=== PATIENT | male | born 1955 | race Caucasian/White ===

== ENCOUNTER 2024-01-18 17:10 | Emergency (ER) | payer OTHER ==
[2024-01-18] MEDS ORDERED: LIDOCAINE VISCOUS 2% 10ML ORAL SOLN ONE (17:54)
[2024-01-18] MEDS ORDERED: MAGNES/ALUMIN/SIMET 30ML UCUP ONE (17:54)
[2024-01-18 18:28] LABS: Absolute Eosinophils 0.1 K/uL (0-0.5); Absolute Lymphocytes (CBC) 2.4 K/uL (0.7-4.9); Absolute Monocytes 0.8 K/uL (0.1-1.3); Absolute Neutrophil 7.3 K/uL (1.8-8.0); Basophils % 0.3 % (0-1.3); Eosinophils % 0.6 % (0-4.4); MCHC 33.4 g/dL (32.0-36.0); MCV 83.8 fL (80-100); MPV 7.5 fL (7.6-11.3); Monocytes % 7.2 % (3.3-12.3); Neutrophils % 68.9 % (41.7-73.7); Platelets 252 thou/uL (152-406); RBC Red Blood Cell Count 5.01 M/uL (4.33-5.43); Red Cell Distribution Width 14.1 % (12.1-15.2)
--- NOTE | 2024-01-18 18:37 | RAD REPORT ---
EXAMINATION: ONE VIEW CHEST XR CLINICAL INDICATION: Male, 68 years old. [facility] MAIN CHEST PAIN Bed Name: 2 TECHNIQUE: Frontal chest projection is submitted. Examination is limited by patient positioning and t echnique. COMPARISON: 02/27/2020 FINDINGS: The lungs are well inflated and clear. No pneumothorax or sizable effusion. The heart is normal in s ize. IMPRESSION: No acute intrathoracic abnormalities.
[2024-01-18 18:46] LABS: ALT/SGPT 28 U/L (16-61); AST/SGOT 20 U/L (15-37); Albumin 3.9 g/dL (3.4-5.0); Albumin/Globulin Ratio 1.2 (1.1-1.8); Alkaline Phosphatase 67 U/L (45-117); Anion Gap 14.7 mEq/L (5.0-15.0); BUN Blood Urea Nitrogen 48 mg/dL (7-18); Bicarbonate 21 mEq/L (21-32); Bilirubin Total 0.4 mg/dL (0.2-1.0); Globulin 3.2 g/dL (2.3-3.5); Glomerular Filtration Rate 35 ml/min (=/>90); Glucose Level 148 mg/dL (74-106); Lipase 64 U/L (13-75); Magnesium 2.2 mg/dL (1.6-2.4); NT PRO-BNP 11 pg/mL (<125); Potassium 3.7 mEq/L (3.5-5.1); Protein, Total 7.1 g/dL (6.4-8.2); Sodium Level 131 mEq/L (136-145); Troponin High Sensitivity 4.1 pg/mL (<58.9)
[2024-01-18 18:48] LABS: Bilirubin Direct < 0.2 mg/dL (0-0.2); Bilirubin Indirect, Calculated 0.2 mg/dL (0.2-0.8)
[2024-01-18 18:52] LABS: Protime INR 0.98
[2024-01-18] MEDS ORDERED: NA CHLORIDE 0.9% 1,000 ML ONE (19:01)
--- NOTE | 2024-01-18 20:00 | RAD REPORT ---
EXAM: CT CHEST, ABDOMEN AND PELVIS WITHOUT CONTRAST CLINICAL INDICATION: Male, 68 years old. [facility] MAIN abd pain;Chest pain Bed Name: 7 TECHNIQUE: CT chest, abdomen and pelvis was performed, without IV contrast, as per department protoco l. Axial, sagittal and coronal reconstructions were obtained. One or more of the following dose reduction techniques were used: Automated exposure control, adjustment of the mA and/or kV according to the patient size, and/or iterative reconstruction. Unless otherwise specified, incidental findings do not require dedicated imaging follow-up. COMPARISON: Chest radiograph of earlier the same day. Pelvis CT 05/13/2022 FINDINGS: The lack of intravenous contrast limits the sensitivity of this exam for evaluation of solid visceral organs, vascular structures, and retroperitoneum. Chest: LOWER NECK/CHEST WALL: Visualized thyroid gland and soft tissues are normal. LUNGS AND AIRWAYS: Airways are clear. No evidence of airspace or interstitial process. No nodules. PLEURA: No pleural effusion. No pneumothorax. Hemidiaphragms are normally positioned. MEDIASTINUM AND LYMPH NODES: No mediastinal mass or fluid collection. Normal size mediastinal, hilar, and axillary lymph nodes. THORACIC AORTA: Normal caliber and configuration. PULMONARY ARTERIES: Normal caliber. HEART: Unremarkable. Abdomen/Pelvis LIVER: Normal in size and contour. No focal lesion. GALLBLADDER/BILE DUCTS: Gallbladder is collapsed limiting evaluation. PANCREAS: No mass, ductal dilation, or orestes-pancreatic fluid. SPLEEN: Normal size. No focal lesion. ADRENALS: Normal; no mass. KIDNEYS AND URETERS: Normal size and contour. No hydronephrosis. Exophytic posterior left interpolar 2.5 cm cyst appears stable. GASTROINTESTINAL TRACT: Stomach is non-dilated. Small bowel has normal course and caliber. No colonic wall thickening or pericolonic inflammatory changes. Postsurgical changes of meniscectomy. Mild distal colonic diverticulosis. PERITONEUM: No free fluid. LYMPH NODES: No lymphadenopathy. ABDOMINAL AORTA AND OTHER VESSELS: Normal caliber aorta and IVC. URINARY BLADDER: Normal contour. REPRODUCTIVE ORGANS: No pathologic process. MUSCULOSKELETAL: No acute or suspicious osseous abnormality. ADDITIONAL FINDINGS: None IMPRESSION: No acute or significant abnormalities in the chest, abdomen, or pelvis.
--- NOTE | 2024-01-18 20:08 | ER ---
Nurse's Notes [facility] Name: Armando Lozada Age: 68 yrs Sex: Male : 1955 Arrival Date: 01/18/2024 Time: 17:10 Bed 7 Private MD: Diagnosis: Gastro-esophageal reflux disease without esophagitis Presentation: 01/17 17:28 Chief complaint: Patient states: Epigastric pain and indigestion onset yesterday cm10 evening. Coronavirus screen: Client denies travel out of the [place] in the last 14 days. At this time, the client does not indicate any symptoms associated with coronavirus-19. Ebola Screen: Patient denies travel to an Ebola-affected area in the 21 days before illness onset. No symptoms or risks identified at this time. Initial Sepsis Screen: Does the patient meet any 2 criteria? No. Patient's initial sepsis screen is negative. Does the patient have a suspected source of infection? No. Patient's initial sepsis screen is negative. Risk Assessment: Do you want to hurt yourself or someone else? Patient reports no desire to harm self or others. Onset of symptoms was January 18, 2024. 17:28 Method Of Arrival: Ambulatory cm10 17:28 Acuity: RONEN 3 cm10 Triage Assessment: 17:30 General: Appears in no apparent distress. comfortable, Behavior is calm, cooperative. cm10 Neuro: No deficits noted. Level of Consciousness is awake, alert, obeys commands, Oriented to person, place, time, situation, Appropriate for age. Respiratory: No deficits noted. Airway is patent Respiratory effort is even, unlabored, Respiratory pattern is regular, symmetrical. Historical: - Allergies: 17:29 No Known Allergies; cm10 - PMHx: 17:29 GERD; Hypercholesterolemia; Colon Cancer; cm10 - PSHx: 17:29 Colectomy; Prostate Removed; Skin grafting; cm10 - Immunization history:: Adult Immunizations up to date. - Infectious Disease History:: Denies. - Social history:: Smoking status: Patient denies any tobacco usage or history of. Screenin:13 [facility] ED Fall Risk Assessment (Adult) History of falling in the last 3 months, ph including since admission No falls in past 3 months (0 pts) Confusion or Disorientation No (0 pts) Intoxicated or Sedated No (0 pts) Impaired Gait No (0 pts) Mobility Assist Device Used No (0 pt) Altered Elimination No (0 pt) Score/Fall Risk Level 0 - 2 = Low Risk Oriented to surroundings, Maintained a safe environment, Hourly rounding (assess needs \T\ fall precautionary measures) done. Abuse screen: Denies threats or abuse. Denies injuries from another. Nutritional screening: No deficits noted. Tuberculosis screening: No symptoms or risk factors identified. Assessment: 18:12 General: Appears in no apparent distress. comfortable, well groomed, Behavior is calm, ph cooperative, appropriate for age. Pain: Complains of pain in xiphoid area and mid-sternal area. Neuro: Level of Consciousness is awake, alert, obeys commands, Oriented to person, place, time, situation. Cardiovascular: Capillary refill < 3 seconds in bilateral fingers Patient's skin is warm and dry. Cardiovascular: Reports chest pain, fatigue, shortness of breath. Respiratory: Airway is patent Respiratory effort is even, unlabored, Respiratory pattern is regular, symmetrical. GI: Bowel sounds present X 4 quads. Abd is soft X 4 quads Reports epigastric pain. Derm: Skin is pink, warm \T\ dry. 19:52 General: Appears in no apparent distress. comfortable, Behavior is calm, cooperative. al5 Pain: Complains of pain in mid-sternal area Pain currently is 1 out of 10 on a pain scale. Neuro: Level of Consciousness is awake, alert, obeys commands, Oriented to person, place, time, situation. Cardiovascular: Capillary refill < 3 seconds Patient's skin is warm and dry. Respiratory: Airway is patent Respiratory effort is even, unlabored, Respiratory pattern is regular, symmetrical. GI: Abdomen is round non-distended. : No signs and/or symptoms were reported regarding the genitourinary system. EENT: No signs and/or symptoms were reported regarding the EENT system. Derm: Skin is intact, Skin is pink, warm \T\ dry. normal. Musculoskeletal: No signs and/or symptoms reported regarding the musculoskeletal system. Vital Signs: 17:28 BP 104 / 71; Pulse 73; Resp 16; Temp 97.1; Pulse Ox 99% on R/A; Weight 86.18 kg (R); cm10 Height 6 ft. 0 in. (R); Pain 10/10; 18:14 BP 110 / 66; Pulse 73; Resp 18; Pulse Ox 96% on R/A; ph 20:18 BP 105 / 64; Pulse 71; Resp 18; Temp 98.5; Pulse Ox 98% on R/A; Pain 1/10; bm8 17:28 Body Mass Index 25.77 (86.18 kg, 182.88 cm) cm10 17:28 Pain Scale: Adult cm10 20:18 Pain Scale: Adult bm8 Dilcia Coma Score: 20:18 Eye Response: spontaneous(4). Motor Response: obeys commands(6). Verbal Response: bm8 oriented(5). Total: 15. ED Course: 17:14 Patient arrived in ED. im 17:15 Josefina Granados PA-C is PHCP. sb4 17:15 Cony Galeas MD is Attending Physician. sb4 17:29 Triage completed. cm10 17:31 Arm band placed on Patient placed in waiting room. EKG completed in triage. Results cm10 shown to MD. 17:31 EKG done, by ED staff, reviewed by Josefina Granados PA-C. cm10 17:45 Arthur Fermin, RN is Primary Nurse. bp 17:55 XRAY Chest (1 view) In Process Unspecified. EDMS 18:13 Patient has correct armband on for positive identification. Bed in low position. Call ph light in reach. Side rails up X 1. Client placed on continuous cardiac and pulse oximetry monitoring. NIBP monitoring applied. quality assurance monitor chassis on. Door closed. Noise minimized. Warm blanket given. 18:13 Initial lab(s) drawn, by me, sent to lab. Inserted saline lock: 20 gauge in right ph antecubital area, using aseptic technique. Blood collected. Flushed with 10 mL NS. 18:14 Lipase Sent. ph 18:14 CBC with Diff Sent. ph 18:14 Basic Metabolic Panel Sent. ph 18:14 LFT's Sent. ph 18:14 Magnesium Sent. ph 18:14 NT PRO-BNP Sent. ph 18:14 PT-INR Sent. ph 18:14 Troponin HS Sent. ph 19:25 Chest Abdomen Pelvis Wo Con CT In Process Unspecified. EDMS 19:33 No provider procedures requiring assistance completed. al5 20:07 Parag Solis MD is Referral Physician. sb4 20:18 Provided Education on: post er care. bm8 20:18 IV discontinued, intact, bleeding controlled, No redness/swelling at site. Pressure bm8 dressing applied. Administered Medications: 18:14 Drug: GI Cocktail without - (Maalox PO 30 ml, Lidocaine Mucous Membrane 2 % 15 ph ml) PO once Route: PO; 19:02 Follow up: Response: No adverse reaction ph 19:02 Drug: NS 0.9% IV 1000 ml IV at 1 bolus Per protocol; 1000 mL bolus Route: IV; Rate: 1 ph bolus; Site: right antecubital; 20:20 Follow up: Response: No adverse reaction; IV Status: Completed infusion; IV Intake: bm8 1000ml Medication: 18:13 VIS not applicable for this client. ph Intake: 20:20 IV: 1000ml; Total: 1000ml. bm8 Outcome: 20:07 Discharge ordered by MD. sb4 20:18 Discharged to home ambulatory, bm8 20:18 Condition: stable 20:18 Discharge instructions given to patient, Instructed on discharge instructions, follow up and referral plans. no drinking with medication, no driving heavy equipment, medication usage, safety practices, Demonstrated understanding of instructions, follow-up care, medications, Prescriptions given X 1, 20:20 Patient left the ED. bm8 Signatures: Dispatcher [employer] EDViky Reynolds RN Arthur Phan ph, RN RN Josefina Sweet PA-Ashley PA-C sb4 Litzy Turner Clarissa, RN RN cm10 Krishna Grimaldo RN RN bm8 Jessica Barnhart RN RN al5
--- NOTE | 2024-01-18 20:08 | EDPHYS ---
Physician Documentation [facility] Name: Armando Lozada Age: 68 yrs Sex: Male : 1955 Arrival Date: 01/18/2024 Time: 17:10 Bed 7 Private MD: ED Physician Cony Galeas HPI: 01/17 17:37 This 68 yrs old Male presents to ER via Ambulatory with complaints of Abdominal Pain, sb4 Chest Pain. 17:37 Patient reports epigastric abdominal pain radiating up into his chest since last night. sb4 Additionally, he endorses shortness of breath and fatigue. He denies any prior cardiac history. He states that he takes Lipitor and Prilosec daily. Denies any nausea or vomiting. Denies any prior episodes. Historical: - Allergies: 17:29 No Known Allergies; cm10 - PMHx: 17:29 GERD; Hypercholesterolemia; Colon Cancer; cm10 - PSHx: 17:29 Colectomy; Prostate Removed; Skin grafting; cm10 - Immunization history:: Adult Immunizations up to date. - Infectious Disease History:: Denies. - Social history:: Smoking status: Patient denies any tobacco usage or history of. ROS: 17:37 Constitutional: Negative for fever, chills, and weight loss, sb4 17:37 Cardiovascular: Positive for chest pain, 17:37 Abdomen/GI: Positive for abdominal pain, 17:37 All other systems are negative, Exam: 17:37 Constitutional: This is a well developed, well nourished patient who is awake, alert, sb4 and in no acute distress. Head/Face: Normocephalic, atraumatic. Eyes: Extra-ocular motions intact. Periorbital areas with no swelling, redness, or edema. ENT: Mucous membranes moist. Cardiovascular: Regular rate and rhythm with a normal S1 and S2. Respiratory: Lungs have equal breath sounds bilaterally, clear to auscultation and percussion. No rales, rhonchi or wheezes noted. No increased work of breathing, no retractions or nasal flaring. Abdomen/GI: Soft, non-tender, no distension. Skin: Warm, dry with normal turgor. Normal color with no rashes, no lesions, and no evidence of cellulitis. Vital Signs: 17:28 BP 104 / 71; Pulse 73; Resp 16; Temp 97.1; Pulse Ox 99% on R/A; Weight 86.18 kg (R); cm10 Height 6 ft. 0 in. (R); Pain 10/10; 18:14 BP 110 / 66; Pulse 73; Resp 18; Pulse Ox 96% on R/A; ph 20:18 BP 105 / 64; Pulse 71; Resp 18; Temp 98.5; Pulse Ox 98% on R/A; Pain 1/10; bm8 17:28 Body Mass Index 25.77 (86.18 kg, 182.88 cm) cm10 17:28 Pain Scale: Adult cm10 20:18 Pain Scale: Adult bm8 Dilcia Coma Score: 20:18 Eye Response: spontaneous(4). Motor Response: obeys commands(6). Verbal Response: bm8 oriented(5). Total: 15. MDM: 17:31 Patient medically screened. sb4 20:06 Data reviewed: vital signs, nurses notes, lab test result(s), radiologic studies, and sb4 as a result, I will discharge patient. Counseling: I had a detailed discussion with the patient and/or guardian regarding the historical points, exam findings, and any diagnostic results supporting the discharge/admit diagnosis, lab results, radiology results, to return to the emergency department if symptoms worsen or persist or if there are any questions or concerns that arise at home. 01/17 17:35 Order name: Basic Metabolic Panel; Complete Time: 18:52 sb4 01/17 17:35 Order name: CBC with Diff; Complete Time: 18:32 sb4 01/17 17:35 Order name: LFT's; Complete Time: 18:52 sb4 01/17 17:35 Order name: Magnesium; Complete Time: 18:52 sb4 01/17 17:35 Order name: NT PRO-BNP; Complete Time: 18:52 sb4 01/17 17:35 Order name: PT-INR; Complete Time: 18:53 sb4 01/17 17:35 Order name: Troponin HS; Complete Time: 18:52 sb4 01/17 17:35 Order name: Lipase; Complete Time: 18:52 sb4 01/17 17:35 Order name: XRAY Chest (1 view); Complete Time: 18:38 sb4 01/17 19:12 Order name: Chest Abdomen Pelvis Wo Con CT; Complete Time: 20:02 sb4 01/17 17:35 Order name: Cardiac monitoring; Complete Time: 17:46 sb4 01/17 17:35 Order name: EKG - Nurse/Tech; Complete Time: 17:45 sb4 01/17 17:35 Order name: IV Saline Lock; Complete Time: 19:03 sb4 01/17 17:35 Order name: Labs collected and sent; Complete Time: 19:03 sb4 01/17 17:35 Order name: O2 Per Protocol; Complete Time: 17:45 sb4 01/17 17:35 Order name: O2 Sat Monitoring; Complete Time: 17:45 sb4 EC:38 Rate is 79 beats/min. Rhythm is regular, Normal Sinus Rhythm. [place] interval is normal at sb4 172 msec. QRS interval is normal at 86 msec. QT interval is normal at 376 msec. No Q waves. T waves are Normal. No ST changes noted. Clinical impression: Normal ECG and No evidence of ischemia. Interpreted by me. Reviewed by me. Administered Medications: 18:14 Drug: GI Cocktail without - (Maalox PO 30 ml, Lidocaine Mucous Membrane 2 % 15 ph ml) PO once Route: PO; 19:02 Follow up: Response: No adverse reaction ph 19:02 Drug: NS 0.9% IV 1000 ml IV at 1 bolus Per protocol; 1000 mL bolus Route: IV; Rate: 1 ph bolus; Site: right antecubital; 20:20 Follow up: Response: No adverse reaction; IV Status: Completed infusion; IV Intake: bm8 1000ml Disposition: 20:18 Co-signature as Attending Physician, Cony Galeas MD I agree with the assessment and gb1 plan of care. I reviewed the patient's care provided by the Advanced Practice Provider and agree with the diagnosis and treatment plan. Disposition Summary: 01/18/24 20:07 Discharge Ordered Notes: Location: Home sb4 Problem: new sb4 Symptoms: have improved sb4 Condition: Stable sb4 Diagnosis - Gastro-esophageal reflux disease without esophagitis sb4 Followup: sb4 - With: Parag Solis MD - When: As needed - Reason: Recheck today's complaints, Re-evaluation by your physician Discharge Instructions: - Discharge Summary Sheet sb4 - Food Choices for Gastroesophageal Reflux Disease, Adult sb4 - Gastroesophageal Reflux Disease, Adult, [id number] sb4 Forms: - Patient Portal Instructions sb4 - Leadership Thank You Letter sb4 Prescriptions: - pantoprazole 40 mg Oral tablet, delayed release (enteric coated) - take 1 tablet ORAL route every morning for 4 wks; 30 tablet; Refills: 0, sb4 Product Selection Permitted Signatures: Dispatcher [employer] EDMS Viky Archuleta RN RN ph Darwin, Josefina, PAKevinC PAMaciel sb4 Hailey Madrigal RN RN cm10 Cony Galeas MD MD gb1 Krishna Grimaldo RN bm8 Corrections: (The following items were deleted from the chart) 17:36 17:36 BASIC METABOLIC PANEL+C.LAB.BRZ ordered. EDMS EDMS 17:36 17:36 CBC+H.LAB.BRZ ordered. EDMS EDMS 17:36 17:36 HEPATIC FUNCTION+C.LAB.BRZ ordered. EDMS EDMS 17:36 17:36 MAGNESIUM+C.LAB.BRZ ordered. EDMS EDMS 17:36 17:36 PROBNP+C.LAB.BRZ ordered. EDMS EDMS 17:36 17:36 PROTIME (+INR)+COAG.LAB.BRZ ordered. EDMS EDMS 17:36 17:36 Troponin High Sensitivity+C.LAB.BRZ ordered. EDMS EDMS 17:36 17:36 LIPASE+C.LAB.BRZ ordered. EDMS EDMS 17:36 17:36 Chest Single View+RAD.RAD.BRZ ordered. EDMS EDMS 19:18 18:53 Chest Abdomen Pelvis W Con+CT.RAD.BRZ ordered. EDMS EDMS 20:07 20:07 Gastro-esophageal reflux disease with esophagitis sb4 sb4
[2024-01-18 20:53] VITALS: BP 105/64; TEMP 98.5; O2SAT 98
--- NOTE | 2024-01-19 16:59 | EKG ---
Test Date: 2024-01-18 Test Time: 17:27:13 Coffee Maker: JULIEN MEASUREMENT RESULTS: Intervals: Rate: 79 VT: 172 QRSD: 86 QT: 376 QTc: 431 Tyner: P: 63 VT: 172 QRS: 102 T: 66 INTERPRETIVE STATEMENTS: Normal sinus rhythm Biatrial enlargement Abnormal ECG No previous ECG available for comparison Electronically Signed On 01-19-24 16:55:00 CDT by Jerad Rodriguez
== END 2024-01-18 20:20 | disposition home or self-care (01) ==
LOC: ER 17:10
DX: K21.9 Gastro-esophageal reflux disease without esophagitis (principal); R53.83 Other fatigue
CPT/HCPCS: 93005; 85025; 80048; 36415; 83735; 85610; 80076; 84484; 83690; 83880; 71250; 74176; 71045; 96360; 99285; J7030

== ENCOUNTER 2025-02-08 06:15 | Day surgery (SDC) | payer OTHER ==
[2025-02-06 13:54] LABS: Absolute Lymphocytes (CBC) 2.7 K/uL (0.7-4.9); Hematocrit 39.8 % (39.6-49.0); Hemoglobin 13.0 g/dL (13.6-17.9); MCH 27.6 pg (27.0-35.0); MCHC 32.7 g/dL (32.0-36.0); MCV 84.3 fL (80-100); MPV 7.5 fL (7.6-11.3); Nucleated RBC Absolute Count 0.0 (0-0); Nucleated Red Blood Cells % 0.0 % (0-0); RBC Red Blood Cell Count 4.72 M/uL (4.33-5.43); White Blood Count 8.10 thou/uL (4.3-10.9)
[2025-02-06 14:08] LABS: Anion Gap 7.1 mEq/L (5.0-15.0); BUN Blood Urea Nitrogen 25.0 mg/dL (7-18); Glucose Level 107.0 mg/dL (74-106); Potassium 5.1 mEq/L (3.5-5.1)
--- NOTE | 2025-02-06 14:10 | RAD REPORT ---
EXAM: Chest Pa And Lat (2 Views) HISTORY: 69 years Male pre procedure COMPARISON: No prior exams FINDINGS: LUNGS/PLEURA: The lungs are clear. No pleural effusions or pneumothorax. No pulmonary edema. CARDIAC/MEDIASTINUM: The cardiac silhouette is within normal limits. UPPER ABDOMEN: No significant abnormality. BONES: No acute abnormality. LINES/TUBES/OTHER: N/A IMPRESSION: No evidence of acute cardiopulmonary disease.
[2025-02-08] MEDS: Ringers Lactate 1,000 ML IV ONE (06:50)
[2025-02-08] MEDS ORDERED: LIDOCAINE 1% MPF 5 ML VIAL ONE (07:11)
[2025-02-08 09:14] VITALS: O2SAT 100
[2025-02-08 09:17] VITALS: BP 107/68; TEMP 97
== END 2025-02-08 08:28 | disposition home or self-care (01) ==
LOC: OR 06:15
PROVIDERS: ATTEND Surgery
PROC: 0DJD8ZZ Inspection of Lower Intestinal Tract, Via Natural or Artificial Opening Endoscopic (ICD-10-PCS; principal; 2025-02-08 07:30)
DX: Z12.11 Encounter for screening for malignant neoplasm of colon (principal); Q27.33 Arteriovenous malformation of digestive system vessel; K57.30 Diverticulosis of large intestine without perforation or abscess without bleeding; Z86.0100 Personal history of colon polyps, unspecified; Z80.0 Family history of malignant neoplasm of digestive organs
CPT/HCPCS: 93005; 85025; 80048; 36415; 71046; J2704; J2003; J7120; G0105